=== PATIENT | male | born 1930 | race Caucasian/White ===

== ENCOUNTER 2016-07-23 | Emergency (ER) | payer MEDICARE, BC ==
[~2016-07-23] VITALS: Ht 175.3 cm; Wt 74.4 kg
[~2016-07-23] MED LIST: ABIR250T PO; ATOR20TA PO; CALC-755 PO; CHOL20006 PO; Levalbuterol Hcl NEB; METH4TAB16 PO; METO25TA6 PO; PANT40TA2 PO; POTA10TA15 PO; TRIA0.252 PO; WARF4TAB41 PO
--- NOTE | 2016-07-23 00:20 | NUR ---
PATIENT BROIGHT INTO ER BY PRIVATE AMBULANCE FROM HOME FOR MECHANICAL FALL. PATIENT WAS USING WALKING TO AMBULATE WHEN WALK "GOT CAUGHT ON SOMETHING" WHICH CAUSE THE FALL. PATIENT HAS LACERATION ON LEFT ELBOW. C/O 04/16 PAIN. DENIES LOC,N/V. PATIENT A/OX4
[2016-07-23] MEDS ORDERED: IMIP25TA6 PO (00:24)
[2016-07-23] MEDS ORDERED: DOCU-25 PO (00:24)
[2016-07-23] MEDS ORDERED: METO-302 PO (00:24)
[2016-07-23] MEDS ORDERED: DIPH1TAB PO (00:24)
[2016-07-23] MEDS ORDERED: BENZ-20 PO (00:24)
[2016-07-23] MEDS ORDERED: SERT50TA PO (00:24)
[2016-07-23] MEDS ORDERED: IPRA42SP NS (00:24)
[2016-07-23] MEDS ORDERED: HYDROCODONE/APAP 5-325MG TABLET PO ONE (01:00)
[2016-07-23] MEDS ORDERED: TDAP DIPH,PERTUSS,TET VAC/PF 0.5 ML DISP.SYRIN IM ONE ×2 (01:00→01:20)
[2016-07-23] MEDS ORDERED: HYDROCODONE/APAP 5-325MG TABLET ONE (01:20)
[2016-07-23] MEDS ORDERED: diphenhydrAMINE 50 MG/1 ML VIAL IM ONE (01:45)
[2016-07-23] MEDS ORDERED: MORPHINE SULFATE 4 MG/1 ML DISP.SYRIN IM ONE (01:45)
[2016-07-23] MEDS ORDERED: diphenhydrAMINE 50 MG/1 ML VIAL ONE (01:59)
[2016-07-23] MEDS ORDERED: MORPHINE SULFATE 10 MG/1 ML DISP.SYRIN ONE (02:00)
--- NOTE | 2016-07-23 02:30 | NUR ---
PATIENT SLEEPING IN ROOM WITH NO DISTRESS NOTED
[2016-07-23 03:11] VITALS: BP 112/75
--- NOTE | 2016-07-23 03:11 | NUR ---
Patient discharged to home in stable conditon WITH SON TAKING PATEINT HOME. Written and verbal after care instructions given. Patient/SON verbalizes understanding of instructions.
== END 2016-07-23 03:12 | disposition home or self-care (01) ==
LOC: ER 00:08
DX: S51.012A Laceration without foreign body of left elbow, initial encounter (principal); S09.90XA Unspecified injury of head, initial encounter; K21.9 Gastro-esophageal reflux disease without esophagitis; F32.9 Major depressive disorder, single episode, unspecified; E11.9 Type 2 diabetes mellitus without complications; R51 Headache; Z79.01 Long term (current) use of anticoagulants; Z85.820 Personal history of malignant melanoma of skin; W01.0XXA Fall on same level from slipping, tripping and stumbling without subsequent striking against object, initial encounter; Y93.89 Activity, other specified; Y99.8 Other external cause status; Y92.89 Other specified places as the place of occurrence of the external cause
CPT/HCPCS: 70450; 72125; 73080; 90715; A4217; A4663; J1200; J2270

== ENCOUNTER 2016-07-25 13:44 | Emergency (ER) | payer MEDICARE, BC ==
[~2016-07-25] VITALS: Ht 182.9 cm; Wt 81.6 kg
[~2016-07-25 13:44] MED LIST changes: +BENZ-20 PO; -CHOL20006 PO; +DIPH1TAB PO; +DOCU-25 PO; +IMIP25TA6 PO; +IPRA42SP NS; -Levalbuterol Hcl NEB; +METO-302 PO; -METO25TA6 PO; +SERT50TA PO; -WARF4TAB41 PO
--- NOTE | 2016-07-25 13:50 | NUR ---
Patient and DPOA refused stroke assessment and swallow screen. Request only comfort measures and hydration.
--- NOTE | 2016-07-25 13:54 | NUR ---
Patient arrived via [facility] from home, accompanied by his DPOA. 86 year old male, initially located with ALOC, Hypotension. GCS 11 per fire dept (3, 3, 5). Patient has ongoing Atrial fibrilation, HR 120+ in transport . BP prior to Er arrival 88/53.
[2016-07-25] MEDS ORDERED: IV NORMAL SALINE 1000 ML BAG IV ONE (14:00)
--- NOTE | 2016-07-25 14:22 | NUR ---
Patient is comfort measures only, DNR copy in chart. DPOA at bedside. Patient does not want any intervention or assessment. Only Lab tests and hydration requested by patient and DPOA.
[2016-07-25 14:23] LABS: BASOPHILS # (AUTO) 0.3 K/uL (0.0-8.0); BASOPHILS % (AUTO) 2.7 % (0.0-2.0); EOSINOPHILS # (AUTO) 0.3 K/uL (0.0-0.7); EOSINOPHILS % (AUTO) 2.5 % (0.0-7.0); HEMOGLOBIN 14.4 G/DL (14.0-18.0); LYMPHOCYTES # (AUTO) 1.2 K/UL (0.8-4.8); LYMPHOCYTES % (AUTO) 10.2 % (20.5-51.5); MEAN CORPUSCULAR HEMOGLOBIN 31.5 UUG (27.0-31.0); MEAN CORPUSCULAR HGB CONC 32 g/dL (32.0-37.0); MEAN CORPUSCULAR VOLUME 98.9 FL (82.0-92.0); MONOCYTES # (AUTO) 1.1 K/UL (0.1-1.30); MONOCYTES % (AUTO) 9.2 % (0.0-11.0); NEUTROPHILS # (AUTO) 8.9 K/UL (1.8-8.9); NEUTROPHILS % (AUTO) 75.4 % (38.5-71.5); PLATELET COUNT (AUTO) 281 K/UL (150-450); RED BLOOD CELL COUNT(AUTO) 4.55 MIL/UL (4.7-6.1); RED CELL DISTRIBUTION WIDTH 20.9 % (11.5-14.5); WHITE BLOOD COUNT (AUTO) 11.8 K/UL (4.0-11.2)
[2016-07-25 14:25] LABS: PLATELET ESTIMATE ADEQUATE
[2016-07-25 14:27] LABS: CALCIUM 9.4 mg/dL (8.5-10.1); POTASSIUM 4.9 mmol/L (3.5-5.1)
[2016-07-25 14:30] LABS: BAND % (MANUAL) 6 % (0-10); LYMPHOCYTES % (MANUAL) 12 % (20-40); NEUTROPHILS % (MANUAL) 69 % (42-75)
[2016-07-25 14:31] LABS: EOSINOPHILS % (MANUAL) 3 % (0-8); MONOCYTES % (MANUAL) 10 % (2-10)
[2016-07-25 14:32] LABS: ANISOCYTOSIS 2+
[2016-07-25 14:34] LABS: CREATININE 4.2 mg/dL (0.6-1.3)
[2016-07-25 14:41] LABS: BILIRUBIN,DIRECT 0.4 mg/dL (0.0-0.2)
[2016-07-25 14:42] LABS: TOTAL PROTEIN, SERUM 6.8 g/dL (6.4-8.2)
[2016-07-25] MEDS ORDERED: FENTANYL CITRATE 100 MCG/2 ML AMPUL IV ONE (14:45)
[2016-07-25] MEDS ORDERED: FENTANYL CITRATE 100 MCG/2 ML AMPUL ONE (14:53)
--- NOTE | 2016-07-25 15:23 | NUR ---
[facility] called, ETA 30-45 minutes.
--- NOTE | 2016-07-25 16:08 | NUR ---
Patient discharged to home in stable conditon via B[facility] ambulance [facility]. Written and verbal after care instructions given. Patient vs stable at discharge. All belongings with patient. Patient to be taken to private home with 24 hour care provided by son. Patients' request is to continue comfort measures at home.
[2016-07-25 16:15] VITALS: BP 134/81
[2016-07-28] MEDS ORDERED: FENTANYL 25 MCG/HR PATCH EACH TD SCH (09:00)
== END 2016-07-25 16:16 | disposition home or self-care (01) ==
LOC: ER 13:44
DX: N17.9 Acute kidney failure, unspecified (principal); I48.91 Unspecified atrial fibrillation; Z79.01 Long term (current) use of anticoagulants; E11.9 Type 2 diabetes mellitus without complications; K21.9 Gastro-esophageal reflux disease without esophagitis; F32.9 Major depressive disorder, single episode, unspecified; C18.9 Malignant neoplasm of colon, unspecified; Z85.46 Personal history of malignant neoplasm of prostate; Z85.820 Personal history of malignant melanoma of skin
CPT/HCPCS: 71010; 80048; 80076; 83690; 84484; 85025; 93005; 96361; 96374; 99285; A4663; J3010; J7030; 36415; 70030-TC